=== PATIENT | female | born 1990 | race Caucasian/White ===

== ENCOUNTER 2017-09-21 23:45 | Emergency (ER) | payer BC, MEDICAID ==
[2017-09-22] MEDS ORDERED: Tetan/Diph/Pertus SYR(Tdap)* 0.5 ML SYR(BOOSTRIX) use SYR IM ONE (00:44)
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
[2017-09-22 00:57] VITALS: BP 130/80
== END 2017-09-22 00:56 | disposition home or self-care (01) ==
LOC: ED 23:45
DX: S60.512A Abrasion of left hand, initial encounter (principal); S60.511A Abrasion of right hand, initial encounter; Z77.21 Contact with and (suspected) exposure to potentially hazardous body fluids; F17.210 Nicotine dependence, cigarettes, uncomplicated; V49.9XXA Car occupant (driver) (passenger) injured in unspecified traffic accident, initial encounter; Y92.9 Unspecified place or not applicable
CPT/HCPCS: 36415; 86703; 86706; 86803; 87340; 90471; 90715; 99282

== ENCOUNTER 2018-11-27 08:51 | Emergency (ER) | payer BC ==
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
[2018-11-27 10:36] VITALS: BP 109/71
== END 2018-11-27 10:35 | disposition home or self-care (01) ==
LOC: ED 08:51
DX: S93.401A Sprain of unspecified ligament of right ankle, initial encounter (principal); S93.601A Unspecified sprain of right foot, initial encounter; F17.210 Nicotine dependence, cigarettes, uncomplicated; W22.8XXA Striking against or struck by other objects, initial encounter; Y92.9 Unspecified place or not applicable
CPT/HCPCS: 99282